=== PATIENT | male | born 1965 | race Caucasian/White ===

== ENCOUNTER 2019-03-21 22:59 | Emergency (ER) | payer MEDICAID ==
[~2019-03-21] VITALS: Ht 170.2 cm; Wt 73.0 kg
[~2019-03-21 22:59] MED LIST: GABA600T PO; INSU100V12 SQ; NOVRI SQ
[2019-03-21] MEDS ORDERED: IBUP-1984 PO (23:45)
[2019-03-21] MEDS ORDERED: MUPI22OI30 TOP (23:45)
[2019-03-21 23:53] VITALS: BP 122/83
== END 2019-03-21 23:55 | disposition home or self-care (01) ==
LOC: ER 23:00
DX: R25.2 Cramp and spasm (principal); L98.8 Other specified disorders of the skin and subcutaneous tissue; E11.9 Type 2 diabetes mellitus without complications; Z79.4 Long term (current) use of insulin
CPT/HCPCS: 99283